=== PATIENT | female | born 1960 | race Caucasian/White ===

== ENCOUNTER 2020-05-31 08:28 | Emergency (ER) | payer MEDICAID ==
[~2020-05-31] VITALS: Ht 160 cm; Wt 120.0 kg
[2020-05-31 09:49] LABS: BASOPHILS % (AUTO) 0.5 % (0-1); EOSINOPHILS # (AUTO) 0.1 X10'3 (0-0.9); EOSINOPHILS % (AUTO) 1.2 % (0-6); HEMATOCRIT 42.4 % (35.0-45.0); HEMOGLOBIN 14.1 g/dl (12.0-16.0); LYMPHOCYTES # (AUTO) 1.2 X10'3 (1.1-4.8); LYMPHOCYTES % (AUTO) 23.8 % (21-51); MEAN CORPUSCULAR HEMOGLOBIN 29.8 PG (27.0-31.0); MEAN CORPUSCULAR HGB CONC 33.3 g/dL (33.0-36.5); MEAN CORPUSCULAR VOLUME 89.6 FL (78-98); MEAN PLATELET VOLUME 8.2 FL (7.4-10.4); MONOCYTES # (AUTO) 0.5 X10'3 (0-0.9); MONOCYTES % (AUTO) 8.9 % (2-12); NEUTROPHILS # (AUTO) 3.4 X10'3 (1.8-7.7); NEUTROPHILS % (AUTO) 65.6 % (42-75); PLATELET COUNT 232 X10'3 (140-440); RED BLOOD COUNT 4.73 X10'6 (4.20-5.60); RED CELL DISTRIBUTION WIDTH 14.8 % (11.5-14.5); WHITE BLOOD COUNT 5.2 X10'3 (4.5-11.0)
[2020-05-31 09:52] LABS: ALANINE AMINOTRANSFERASE 34 U/L (12-78); ALBUMIN 3.5 G/DL (3.4-5.0); ALBUMIN/GLOBULIN RATIO 0.9 (1.1-1.5); ALKALINE PHOSPHATASE 87 IU/L (46-116); ANION GAP 8 (8-16); ASPARTATE AMINO TRANSFERASE 26 U/L (10-37); BILIRUBIN,TOTAL 0.5 MG/DL (0.1-1.0); BLOOD UREA NITROGEN 17 MG/DL (7-18); BUN/CREATININE RATIO 18.3 (6.6-38.0); CALCIUM 8.9 MG/DL (8.5-10.1); CHLORIDE 102 MMOL/L (99-107); CREATININE 0.93 MG/DL (0.40-0.90); GLUCOSE 106 MG/DL (70-104); SODIUM 137 MMOL/L (135-145); TOTAL CARBON DIOXIDE 26.7 MMOL/L (24-32); TOTAL PROTEIN 7.3 G/DL (6.4-8.2); eGFR 62 ML/MIN
[2020-05-31 10:11] LABS: MAGNESIUM 2.2 MG/DL (1.5-2.4)
[2020-05-31 11:04] VITALS: BP 153/72
== END 2020-05-31 11:07 | disposition home or self-care (01) ==
LOC: ER 08:29
DX: R07.89 Other chest pain (principal); R42 Dizziness and giddiness; R53.83 Other fatigue; R03.0 Elevated blood-pressure reading, without diagnosis of hypertension; E03.9 Hypothyroidism, unspecified
CPT/HCPCS: 36415; 71045; 80053; 83735; 83880; 84484; 85025; 85379; 93005; 99285

== ENCOUNTER 2020-09-12 12:08 | Emergency (ER) | payer MEDICAID ==
--- NOTE | 2020-09-12 13:09 | NUR ---
Patient not in lobby for the third time, Attempt to contact patient by phone with no voicemail or answer. Dr. Jennings notified.
== END 2020-09-12 13:10 | disposition left against medical advice (07) ==
LOC: ER 12:08
DX: I10 Essential (primary) hypertension (principal); Z53.21 Procedure and treatment not carried out due to patient leaving prior to being seen by health care provider

== ENCOUNTER 2020-12-07 12:06 | Inpatient (IN) | payer MEDICAID ==
[~2020-12-07] VITALS: Ht 160 cm; Wt 113.6 kg
--- NOTE | 2020-12-07 12:21 | NUR ---
PT FAMILY SAURABH CHING AND KONG MANUEL, PT GIVE PERMISSION TO TQALK WITH THEM ABOUT HER HEALTH.
[2020-12-07] MEDS ORDERED: DEXAMETHASONE 6 MG TABLET PO ONE (13:15)
[2020-12-07] MEDS ORDERED: dexamethasone 4mg tablet PO ONE (13:15)
[2020-12-07 14:30] LABS: BASOPHILS % (AUTO) 0.1 % (0-1); EOSINOPHILS % (AUTO) 0 % (0-6); HEMATOCRIT 40.9 % (35.0-45.0); HEMOGLOBIN 13.4 g/dl (12.0-16.0); LYMPHOCYTES # (AUTO) 0.5 X10'3 (1.1-4.8); LYMPHOCYTES % (AUTO) 7.9 % (21-51); MEAN CORPUSCULAR HEMOGLOBIN 29.1 PG (27.0-31.0); MEAN CORPUSCULAR HGB CONC 32.7 g/dL (33.0-36.5); MEAN PLATELET VOLUME 8.6 FL (7.4-10.4); MONOCYTES # (AUTO) 0.3 X10'3 (0-0.9); MONOCYTES % (AUTO) 5.8 % (2-12); NEUTROPHILS # (AUTO) 5.1 X10'3 (1.8-7.7); NEUTROPHILS % (AUTO) 86.2 % (42-75); PLATELET COUNT 152 X10'3 (140-440); RED BLOOD COUNT 4.59 X10'6 (4.20-5.60); RED CELL DISTRIBUTION WIDTH 15.1 % (11.5-14.5); WHITE BLOOD COUNT 5.9 X10'3 (4.5-11.0)
[2020-12-07 14:49] LABS: ALANINE AMINOTRANSFERASE 32 U/L (12-78); ALBUMIN 2.7 G/DL (3.4-5.0); ALBUMIN/GLOBULIN RATIO 0.6 (1.1-1.5); ALKALINE PHOSPHATASE 62 IU/L (46-116); ANION GAP 9 (8-16); ASPARTATE AMINO TRANSFERASE 33 U/L (10-37); BILIRUBIN,TOTAL 0.4 MG/DL (0.1-1.0); BLOOD UREA NITROGEN 11 MG/DL (7-18); BUN/CREATININE RATIO 12.6 (6.6-38.0); CALCIUM 8.6 MG/DL (8.5-10.1); CHLORIDE 101 MMOL/L (99-107); CREATININE 0.87 MG/DL (0.40-0.90); GLUCOSE 139 MG/DL (70-104); POTASSIUM 3.4 MMOL/L (3.5-5.1); SODIUM 140 MMOL/L (135-145); TOTAL CARBON DIOXIDE 29.8 MMOL/L (24-32); TOTAL PROTEIN 6.9 G/DL (6.4-8.2); eGFR 67 ML/MIN
[2020-12-07 14:53] LABS: C-REACTIVE PROTEIN 23.01 MG/DL (0.0-0.5); LACTATE DEHYDROGENASE 265 U/L (81-234)
--- NOTE | 2020-12-07 15:00 | NUR ---
ROOM AIR SPO2 89-90 %, PA NOTIFIED, PT PLACED ON 2L/NC
[2020-12-07] MEDS ORDERED: LEVO25TA2 PO (17:01)
[2020-12-07] MEDS ORDERED: acetaminophen 650mg rectal suppository RC PRN (17:25)
[2020-12-07] MEDS ORDERED: bisacodyl 10mg suppository rectal RC PRN (17:25)
[2020-12-07] MEDS ORDERED: magnesium 4gm in 100ml NS 100 ML IV PRN (17:25)
[2020-12-07] MEDS ORDERED: magnesium hydroxide 30ml (MOM) UD suspension PO PRN (17:25)
[2020-12-07] MEDS ORDERED: magnesium Cl slow-release 64mg tablet PO PRN (17:25)
[2020-12-07] MEDS ORDERED: morphine 2 MG/ML inj. syringe IV PRN ×2 (17:25)
[2020-12-07] MEDS ORDERED: acetaminophen 325mg tablet PO PRN (17:25)
[2020-12-07] MEDS ORDERED: magnesium 2GM in 50ml NS 50 ML IV PRN (17:25)
[2020-12-07] MEDS ORDERED: HYDROcodone/acetaminophen 5mg/325mg tablet PO PRN (17:25)
[2020-12-07] MEDS ORDERED: ondansetron/PF 4mg/2ml inj IV PRN (17:25)
[2020-12-07] MEDS ORDERED: mag hydrox/Alum hydrox/simeth 30ml oral suspension PO PRN (17:25)
[2020-12-07] MEDS ORDERED: HYDROcodone/acetaminophen 10/325mg tab PO PRN (17:25)
[2020-12-07] MEDS ORDERED: diphenhydrAMINE 25mg capsule PO PRN (17:25)
[2020-12-07] MEDS ORDERED: potassium Cl 20 mEq SR tablet PO PRN (17:25)
[2020-12-07] MEDS ORDERED: potassium Cl 40MEQ/1/2NS 520ml 520 ML IV PRN ×2 (17:25)
[2020-12-07 18:01] LABS: HEMOGLOBIN A1C 6.5 % (4.5-6.2)
[2020-12-07] MEDS: normal saline 1000ml 1,000 ML IV SCH (19:13)
[2020-12-07 19:40] LABS: CLARITY,URINE CLEAR (Clear); COLOR,URINE YELLOW (Yellow); GLUCOSE, URINE NEGATIVE (Neg); KETONES,URINE NEGATIVE (Neg); LEUKOCYTE ESTERASE ,URINE NEGATIVE (Neg); NITRITES, URINE NEGATIVE (Neg); OCCULT BLOOD,URINE TRACE-INTACT (Neg); PROTEIN,URINE TRACE mg/dl (Neg); UA COLLECTION TYPE CLN CATCH MIDSTREAM
[2020-12-07 19:47] LABS: BACTERIA,URINE FEW /HPF (Neg); RBC,URINE 0-2 /HPF (0-2); SQUAMOUS EPITHELIAL CELL,UR FEW /LPF (FEW); WBC,URINE NONE SEEN /HPF (0-4)
[2020-12-07] MEDS: K and/or MAG REPLACEMENT MC SCH (20:00)
[2020-12-07] MEDS: potassium Cl 20 mEq SR tablet PO PRN (20:31)
[2020-12-07] MEDS: benzonatate 100mg capsule PO SCH (20:32)
[2020-12-07] MEDS: DEXAMETHASONE 6 MG TABLET PO SCH (20:32)
[2020-12-07] MEDS: acetaminophen 325mg tablet PO PRN (20:33)
[2020-12-07] MEDS: ALBUTEROL INHALER 1 PUFF/90 MCG INHALER IH PRN (20:46)
--- NOTE | 2020-12-07 21:15 | NUR ---
PT ARRIVED FROM ER. AMBULATED TO BATHROOM AND BECAME SOB. VSS. PT HAS BEEN ORIENTED TO THE ROOM. RECEIVED REPORT FROM KAY VAZQUEZ PRIOR TO PT'S ARRIVAL.
[2020-12-07 22:00] VITALS: BP 167/92
[2020-12-08] MEDS: potassium Cl 20 mEq SR tablet PO PRN (00:26)
[2020-12-08 02:00] VITALS: BP 140/80
[2020-12-08] MEDS: ALBUTEROL INHALER 1 PUFF/90 MCG INHALER IH PRN ×2 (03:08→09:12)
[2020-12-08 06:00] VITALS: BP 161/73
--- NOTE | 2020-12-08 06:09 | NUR ---
Problems reprioritized. Patient report given, questions answered & plan of care reviewed with KAY SUTTON.
[2020-12-08] MEDS: benzonatate 100mg capsule PO SCH ×3 (07:06→20:21)
[2020-12-08] MEDS: levoTHYROXINE 25mcg tablet PO SCH ×2 (07:06→07:15)
[2020-12-08] MEDS: DEXAMETHASONE 6 MG TABLET PO SCH ×2 (07:06→20:21)
[2020-12-08] MEDS: enoxaparin 40mg/0.4ml syringe SUBCUT SCH (07:07)
[2020-12-08 07:15] LABS: BASOPHILS % (AUTO) 0.1 % (0-1); EOSINOPHILS % (AUTO) 0 % (0-6); MONOCYTES # (AUTO) 0.2 X10'3 (0-0.9); NEUTROPHILS # (AUTO) 4.2 X10'3 (1.8-7.7)
[2020-12-08 07:17] LABS: HEMOGLOBIN 13.5 g/dl (12.0-16.0); LYMPHOCYTES # (AUTO) 0.5 X10'3 (1.1-4.8); LYMPHOCYTES % (AUTO) 9.4 % (21-51); MEAN CORPUSCULAR HEMOGLOBIN 29.3 PG (27.0-31.0); MEAN CORPUSCULAR HGB CONC 32.9 g/dL (33.0-36.5); MEAN CORPUSCULAR VOLUME 89.1 FL (78-98); MEAN PLATELET VOLUME 8.7 FL (7.4-10.4); MONOCYTES % (AUTO) 4.6 % (2-12); NEUTROPHILS % (AUTO) 85.9 % (42-75); PLATELET COUNT 167 X10'3 (140-440); RED CELL DISTRIBUTION WIDTH 15.3 % (11.5-14.5); WHITE BLOOD COUNT 4.9 X10'3 (4.5-11.0)
[2020-12-08 07:24] LABS: D-DIMER 0.64 MG/L FEU (0-0.50)
[2020-12-08] MEDS: LEVOTHYROXINE 25 MG PO SCH (07:30)
[2020-12-08 07:42] LABS: ALANINE AMINOTRANSFERASE 33 U/L (12-78); ALBUMIN 2.6 G/DL (3.4-5.0); ALBUMIN/GLOBULIN RATIO 0.6 (1.1-1.5); ALKALINE PHOSPHATASE 62 IU/L (46-116); ANION GAP 8 (8-16); ASPARTATE AMINO TRANSFERASE 30 U/L (10-37); BILIRUBIN,TOTAL 0.2 MG/DL (0.1-1.0); BLOOD UREA NITROGEN 12 MG/DL (7-18); BUN/CREATININE RATIO 13.6 (6.6-38.0); C-REACTIVE PROTEIN 21.75 MG/DL (0.0-0.5); CALCIUM 8.8 MG/DL (8.5-10.1); CHLORIDE 102 MMOL/L (99-107); CHOL/HDL RATIO 3.1 (0.00-4.99); CHOLESTEROL 132 MG/DL (0-200); CREATININE 0.88 MG/DL (0.40-0.90); GLUCOSE 269 MG/DL (70-104); HDL CHOLESTEROL 43 MG/DL (35-60); LACTATE DEHYDROGENASE 318 U/L (81-234); LDL CHOLESTEROL 78 MG/DL (50-100); MAGNESIUM 2.4 MG/DL (1.5-2.4); PHOSPHORUS 1.6 MG/DL (2.3-4.5); SODIUM 139 MMOL/L (135-145); TOTAL CARBON DIOXIDE 29.1 MMOL/L (24-32); TOTAL PROTEIN 7.2 G/DL (6.4-8.2); TRIGLYCERIDES 72 MG/DL (20-135); eGFR 66 ML/MIN
[2020-12-08] MEDS: K and/or MAG REPLACEMENT MC SCH ×2 (08:00→20:00)
[2020-12-08] MEDS ORDERED: LEVOTHYROXINE 25 MG PO SCH (08:00)
[2020-12-08 10:00] VITALS: BP 167/69
[2020-12-08] MEDS ORDERED: REMDESIVIR 100MG inj. 200 MG in normal saline 100ml IV soln 100 ML IV ONE (11:30)
[2020-12-08 14:00] VITALS: BP 172/94
[2020-12-08 18:00] VITALS: BP 163/102
--- NOTE | 2020-12-08 18:19 | NUR ---
Patient in room [facility]TH[facility] 4016. I have received report from Maddison VILLANUEVA and had the opportunity to ask questions and assume patient care.
[2020-12-08] MEDS ORDERED: MESSAGE TO PHARMACY PO ONE (19:55)
[2020-12-08] MEDS ORDERED: glucagon, human recombinant 1mg kit SUBCUT PRN (19:55)
[2020-12-08] MEDS ORDERED: dextrose ORAL solution 15 GM/59 ML bottle PO PRN ×2 (19:55)
[2020-12-08] MEDS ORDERED: dextrose 50%-water 50ml dispensing syringe IV PRN ×2 (19:55)
[2020-12-08 22:00] VITALS: BP 157/93
[2020-12-08] MEDS: Melatonin 3mg tablet PO SCH (22:20)
[2020-12-08] MEDS: insulin glargine (Lantus) pen - multi-dose SQ SCH (22:20)
[2020-12-09 02:00] VITALS: BP 137/86
[2020-12-09 06:00] VITALS: BP 143/89
--- NOTE | 2020-12-09 06:07 | NUR ---
Problems reprioritized. Patient report given, questions answered & plan of care reviewed with Amanda VILLANUEVA.
[2020-12-09] MEDS: enoxaparin 40mg/0.4ml syringe SUBCUT SCH (07:16)
[2020-12-09] MEDS: benzonatate 100mg capsule PO SCH ×3 (07:16→20:09)
[2020-12-09] MEDS: REMDESIVIR 100MG inj. 100 MG in normal saline 100ml IV soln 100 ML IV SCH (07:16)
[2020-12-09] MEDS: DEXAMETHASONE 6 MG TABLET PO SCH ×2 (07:16→20:09)
[2020-12-09] MEDS: LEVOTHYROXINE 25 MG PO SCH (07:30)
[2020-12-09] MEDS: K and/or MAG REPLACEMENT MC SCH ×2 (07:34→20:00)
[2020-12-09 08:52] LABS: BASOPHILS % (AUTO) 0.2 % (0-1); EOSINOPHILS % (AUTO) 0 % (0-6); HEMATOCRIT 41.8 % (35.0-45.0); HEMOGLOBIN 13.6 g/dl (12.0-16.0); LYMPHOCYTES # (AUTO) 0.7 X10'3 (1.1-4.8); LYMPHOCYTES % (AUTO) 5.5 % (21-51); MEAN CORPUSCULAR HEMOGLOBIN 28.8 PG (27.0-31.0); MEAN CORPUSCULAR HGB CONC 32.5 g/dL (33.0-36.5); MEAN CORPUSCULAR VOLUME 88.7 FL (78-98); MEAN PLATELET VOLUME 8.4 FL (7.4-10.4); MONOCYTES # (AUTO) 0.5 X10'3 (0-0.9); MONOCYTES % (AUTO) 4.4 % (2-12); NEUTROPHILS # (AUTO) 11.1 X10'3 (1.8-7.7); NEUTROPHILS % (AUTO) 89.9 % (42-75); PLATELET COUNT 223 X10'3 (140-440); RED BLOOD COUNT 4.72 X10'6 (4.20-5.60); RED CELL DISTRIBUTION WIDTH 15.4 % (11.5-14.5); WHITE BLOOD COUNT 12.3 X10'3 (4.5-11.0)
[2020-12-09] MEDS: insulin Lispro (HumaLOG) vial - multi-dose SQ SCH ×3 (09:00→18:50)
[2020-12-09 09:16] LABS: ALANINE AMINOTRANSFERASE 37 U/L (12-78); ALBUMIN 2.5 G/DL (3.4-5.0); ALBUMIN/GLOBULIN RATIO 0.6 (1.1-1.5); ALKALINE PHOSPHATASE 62 IU/L (46-116); ANION GAP 8 (8-16); ASPARTATE AMINO TRANSFERASE 28 U/L (10-37); BILIRUBIN,TOTAL 0.2 MG/DL (0.1-1.0); BLOOD UREA NITROGEN 19 MG/DL (7-18); C-REACTIVE PROTEIN 9.23 MG/DL (0.0-0.5); CALCIUM 8.7 MG/DL (8.5-10.1); CHLORIDE 104 MMOL/L (99-107); CREATININE 0.76 MG/DL (0.40-0.90); GLUCOSE 214 MG/DL (70-104); LACTATE DEHYDROGENASE 254 U/L (81-234); MAGNESIUM 2.3 MG/DL (1.5-2.4); PHOSPHORUS 3.1 MG/DL (2.3-4.5); SODIUM 140 MMOL/L (135-145); TOTAL PROTEIN 6.8 G/DL (6.4-8.2); eGFR 78 ML/MIN
[2020-12-09 09:28] LABS: D-DIMER 0.44 MG/L FEU (0-0.50)
[2020-12-09 10:00] VITALS: BP 155/81
[2020-12-09] MEDS: acetaminophen 325mg tablet PO PRN (13:59)
[2020-12-09 14:21] VITALS: BP 165/94
[2020-12-09 18:00] VITALS: BP 157/90
--- NOTE | 2020-12-09 18:20 | NUR ---
Problems reprioritized. Patient report given, questions answered & plan of care reviewed with Zohreh VILLANUEVA.
--- NOTE | 2020-12-09 18:20 | NUR ---
PAGER ID: [phone] MESSAGE: [id number]- Headache is gone now that nitro patch is off. No chest pain with ambulation or at rest. Does not feel comfortable going home tonight. Amanda [id number] Addendum: 12/09/20 at 1820 by Amanda Daniel RN Wrong patient
--- NOTE | 2020-12-09 18:22 | NUR ---
Patient in room [facility]TH[facility] 4016. I have received report from KAY Patel and had the opportunity to ask questions and assume patient care.
[2020-12-09] MEDS: normal saline 1000ml 1,000 ML IV SCH (18:32)
[2020-12-09] MEDS: Melatonin 3mg tablet PO SCH (20:55)
[2020-12-09] MEDS: insulin glargine (Lantus) pen - multi-dose SQ SCH (20:57)
[2020-12-09] MEDS: amLODIPine 5mg tablet PO SCH (20:59)
[2020-12-09 22:00] VITALS: BP 159/87
[2020-12-10 02:00] VITALS: BP 147/73
[2020-12-10 06:00] VITALS: BP 144/82
--- NOTE | 2020-12-10 06:40 | NUR ---
Problems reprioritized. Patient report given, questions answered & plan of care reviewed with KAY Patel.
[2020-12-10 07:26] LABS: BASOPHILS % (AUTO) 0.1 % (0-1); EOSINOPHILS % (AUTO) 0 % (0-6); HEMATOCRIT 42.1 % (35.0-45.0); HEMOGLOBIN 13.8 g/dl (12.0-16.0); LYMPHOCYTES # (AUTO) 0.8 X10'3 (1.1-4.8); LYMPHOCYTES % (AUTO) 8.3 % (21-51); MEAN CORPUSCULAR HGB CONC 32.7 g/dL (33.0-36.5); MEAN CORPUSCULAR VOLUME 88.5 FL (78-98); MONOCYTES # (AUTO) 0.8 X10'3 (0-0.9); MONOCYTES % (AUTO) 8.4 % (2-12); NEUTROPHILS # (AUTO) 7.6 X10'3 (1.8-7.7); NEUTROPHILS % (AUTO) 83.2 % (42-75); PLATELET COUNT 263 X10'3 (140-440); RED BLOOD COUNT 4.76 X10'6 (4.20-5.60); RED CELL DISTRIBUTION WIDTH 15.2 % (11.5-14.5); WHITE BLOOD COUNT 9.2 X10'3 (4.5-11.0)
[2020-12-10] MEDS: benzonatate 100mg capsule PO SCH ×3 (07:27→21:08)
[2020-12-10] MEDS: enoxaparin 40mg/0.4ml syringe SUBCUT SCH (07:27)
[2020-12-10] MEDS: amLODIPine 5mg tablet PO SCH (07:28)
[2020-12-10] MEDS: REMDESIVIR 100MG inj. 100 MG in normal saline 100ml IV soln 100 ML IV SCH (07:28)
[2020-12-10] MEDS: DEXAMETHASONE 6 MG TABLET PO SCH (07:28)
[2020-12-10 07:35] LABS: D-DIMER 0.35 MG/L FEU (0-0.50)
[2020-12-10 07:51] LABS: ALANINE AMINOTRANSFERASE 39 U/L (12-78); ALBUMIN 2.5 G/DL (3.4-5.0); ALBUMIN/GLOBULIN RATIO 0.6 (1.1-1.5); ALKALINE PHOSPHATASE 58 IU/L (46-116); ANION GAP 10 (8-16); ASPARTATE AMINO TRANSFERASE 23 U/L (10-37); BILIRUBIN,TOTAL 0.2 MG/DL (0.1-1.0); BLOOD UREA NITROGEN 25 MG/DL (7-18); BUN/CREATININE RATIO 32.9 (6.6-38.0); C-REACTIVE PROTEIN 4.75 MG/DL (0.0-0.5); CALCIUM 8.3 MG/DL (8.5-10.1); CHLORIDE 104 MMOL/L (99-107); CREATININE 0.76 MG/DL (0.40-0.90); GLUCOSE 201 MG/DL (70-104); LACTATE DEHYDROGENASE 251 U/L (81-234); MAGNESIUM 2.5 MG/DL (1.5-2.4); PHOSPHORUS 3.4 MG/DL (2.3-4.5); POTASSIUM 4.3 MMOL/L (3.5-5.1); SODIUM 140 MMOL/L (135-145); TOTAL CARBON DIOXIDE 26.5 MMOL/L (24-32); TOTAL PROTEIN 6.7 G/DL (6.4-8.2); eGFR 78 ML/MIN
[2020-12-10] MEDS: K and/or MAG REPLACEMENT MC SCH ×2 (08:00→19:19)
[2020-12-10] MEDS: insulin Lispro (HumaLOG) vial - multi-dose SQ SCH ×3 (09:43→18:56)
[2020-12-10] MEDS: LEVOTHYROXINE 25 MG PO SCH (09:50)
[2020-12-10 14:00] VITALS: BP 133/88
--- NOTE | 2020-12-10 14:02 | NUR ---
DM consult for newly diagnosed DM, A1c 6.5%; faxed written DM education handout to unit to be given to patient to review education via telephone. Called patient at 14:00 on 12/10, did not answer. [facility] contact information provided to patient. Addendum: 12/10/20 at [address] Amended: Links added.
[2020-12-10 18:00] VITALS: BP_SYST 121; BP_SYST 142; BP_DIAS 86; BP_DIAS 88
--- NOTE | 2020-12-10 18:25 | NUR ---
Problems reprioritized. Patient report given, questions answered & plan of care reviewed with Chelsey VILLANUEVA.
[2020-12-10] MEDS: Melatonin 3mg tablet PO SCH (21:08)
[2020-12-10] MEDS: dexamethasone 4mg tablet PO SCH (21:08)
[2020-12-10] MEDS: insulin glargine (Lantus) pen - multi-dose SQ SCH (21:15)
[2020-12-10 22:00] VITALS: BP 155/86
[2020-12-11 02:00] VITALS: BP 134/75
--- NOTE | 2020-12-11 06:15 | NUR ---
Problems reprioritized. Patient report given, questions answered & plan of care reviewed with KAY Patel.
[2020-12-11 06:21] VITALS: BP 136/72
[2020-12-11 07:01] LABS: BASOPHILS % (AUTO) 0.1 % (0-1); EOSINOPHILS % (AUTO) 0 % (0-6); HEMATOCRIT 40.6 % (35.0-45.0); HEMOGLOBIN 13.7 g/dl (12.0-16.0); LYMPHOCYTES # (AUTO) 0.9 X10'3 (1.1-4.8); LYMPHOCYTES % (AUTO) 10.3 % (21-51); MEAN CORPUSCULAR HEMOGLOBIN 29.5 PG (27.0-31.0); MEAN CORPUSCULAR HGB CONC 33.8 g/dL (33.0-36.5); MEAN CORPUSCULAR VOLUME 87.5 FL (78-98); MEAN PLATELET VOLUME 8.1 FL (7.4-10.4); MONOCYTES # (AUTO) 0.7 X10'3 (0-0.9); MONOCYTES % (AUTO) 8.5 % (2-12); NEUTROPHILS # (AUTO) 6.8 X10'3 (1.8-7.7); NEUTROPHILS % (AUTO) 81.1 % (42-75); PLATELET COUNT 306 X10'3 (140-440); RED BLOOD COUNT 4.64 X10'6 (4.20-5.60); RED CELL DISTRIBUTION WIDTH 15.2 % (11.5-14.5); WHITE BLOOD COUNT 8.3 X10'3 (4.5-11.0)
[2020-12-11] MEDS: dexamethasone 4mg tablet PO SCH ×2 (07:08→21:00)
[2020-12-11] MEDS: benzonatate 100mg capsule PO SCH ×3 (07:08→21:00)
[2020-12-11] MEDS: REMDESIVIR 100MG inj. 100 MG in normal saline 100ml IV soln 100 ML IV SCH (07:08)
[2020-12-11] MEDS: LEVOTHYROXINE 25 MG PO SCH (07:09)
[2020-12-11] MEDS: enoxaparin 40mg/0.4ml syringe SUBCUT SCH (07:09)
[2020-12-11 07:11] LABS: D-DIMER 0.42 MG/L FEU (0-0.50)
[2020-12-11] MEDS: amLODIPine 5mg tablet PO SCH (07:14)
[2020-12-11 07:21] LABS: ALANINE AMINOTRANSFERASE 72 U/L (12-78); ALBUMIN 2.4 G/DL (3.4-5.0); ALBUMIN/GLOBULIN RATIO 0.6 (1.1-1.5); ALKALINE PHOSPHATASE 55 IU/L (46-116); ANION GAP 9 (8-16); ASPARTATE AMINO TRANSFERASE 40 U/L (10-37); BILIRUBIN,TOTAL 0.3 MG/DL (0.1-1.0); BLOOD UREA NITROGEN 30 MG/DL (7-18); C-REACTIVE PROTEIN 2.56 MG/DL (0.0-0.5); CALCIUM 8.4 MG/DL (8.5-10.1); CHLORIDE 103 MMOL/L (99-107); CREATININE 0.75 MG/DL (0.40-0.90); GLUCOSE 171 MG/DL (70-104); LACTATE DEHYDROGENASE 239 U/L (81-234); MAGNESIUM 2.5 MG/DL (1.5-2.4); PHOSPHORUS 4.2 MG/DL (2.3-4.5); POTASSIUM 4.2 MMOL/L (3.5-5.1); SODIUM 138 MMOL/L (135-145); TOTAL CARBON DIOXIDE 25.8 MMOL/L (24-32); TOTAL PROTEIN 6.4 G/DL (6.4-8.2); eGFR 79 ML/MIN
[2020-12-11] MEDS: K and/or MAG REPLACEMENT MC SCH ×2 (07:22→18:51)
[2020-12-11] MEDS: insulin Lispro (HumaLOG) vial - multi-dose SQ SCH ×3 (08:17→18:35)
[2020-12-11 09:16] VITALS: BP 141/88
[2020-12-11 13:54] VITALS: BP 129/82
[2020-12-11 18:00] VITALS: BP 158/97
--- NOTE | 2020-12-11 18:19 | NUR ---
Problems reprioritized. Patient report given, questions answered & plan of care reviewed with Chelsey VILLANUEVA.
[2020-12-11] MEDS: Melatonin 3mg tablet PO SCH (21:00)
[2020-12-11] MEDS: insulin glargine (Lantus) pen - multi-dose SQ SCH (21:06)
[2020-12-11 22:00] VITALS: BP 143/84
[2020-12-12 06:00] VITALS: BP 138/78
--- NOTE | 2020-12-12 06:09 | NUR ---
Problems reprioritized. Patient report given, questions answered & plan of care reviewed with KAY Martin.
[2020-12-12 07:18] LABS: BASOPHILS % (AUTO) 0.5 % (0-1); EOSINOPHILS % (AUTO) 0 % (0-6); HEMATOCRIT 44.8 % (35.0-45.0); HEMOGLOBIN 14.8 g/dl (12.0-16.0); LYMPHOCYTES # (AUTO) 0.8 X10'3 (1.1-4.8); LYMPHOCYTES % (AUTO) 11.4 % (21-51); MEAN CORPUSCULAR HEMOGLOBIN 29.5 PG (27.0-31.0); MEAN CORPUSCULAR HGB CONC 33.1 g/dL (33.0-36.5); MEAN CORPUSCULAR VOLUME 88.9 FL (78-98); MEAN PLATELET VOLUME 8.1 FL (7.4-10.4); MONOCYTES # (AUTO) 0.5 X10'3 (0-0.9); NEUTROPHILS # (AUTO) 6.1 X10'3 (1.8-7.7); NEUTROPHILS % (AUTO) 81.1 % (42-75); PLATELET COUNT 343 X10'3 (140-440); RED BLOOD COUNT 5.03 X10'6 (4.20-5.60); RED CELL DISTRIBUTION WIDTH 15.3 % (11.5-14.5); WHITE BLOOD COUNT 7.5 X10'3 (4.5-11.0)
[2020-12-12 07:22] LABS: D-DIMER 0.61 MG/L FEU (0-0.50)
[2020-12-12 07:25] LABS: ALANINE AMINOTRANSFERASE 91 U/L (12-78); ALBUMIN 2.5 G/DL (3.4-5.0); ALBUMIN/GLOBULIN RATIO 0.6 (1.1-1.5); ALKALINE PHOSPHATASE 57 IU/L (46-116); ANION GAP 6 (8-16); ASPARTATE AMINO TRANSFERASE 31 U/L (10-37); BILIRUBIN,TOTAL 0.4 MG/DL (0.1-1.0); BLOOD UREA NITROGEN 26 MG/DL (7-18); BUN/CREATININE RATIO 35.6 (6.6-38.0); C-REACTIVE PROTEIN 1.67 MG/DL (0.0-0.5); CALCIUM 8.1 MG/DL (8.5-10.1); CHLORIDE 104 MMOL/L (99-107); CREATININE 0.73 MG/DL (0.40-0.90); GLUCOSE 131 MG/DL (70-104); LACTATE DEHYDROGENASE 242 U/L (81-234); MAGNESIUM 2.5 MG/DL (1.5-2.4); PHOSPHORUS 4.3 MG/DL (2.3-4.5); POTASSIUM 4.4 MMOL/L (3.5-5.1); SODIUM 139 MMOL/L (135-145); TOTAL CARBON DIOXIDE 28.9 MMOL/L (24-32); TOTAL PROTEIN 6.5 G/DL (6.4-8.2); eGFR 82 ML/MIN
[2020-12-12] MEDS: K and/or MAG REPLACEMENT MC SCH (08:00)
[2020-12-12] MEDS ORDERED: DEXAMETHASONE 6 MG TABLET PO SCH (08:10)
[2020-12-12 08:26] LABS: TOTAL CELLS COUNTED 100
[2020-12-12 08:27] LABS: PLATELET ESTIMATE NORMAL
[2020-12-12] MEDS: benzonatate 100mg capsule PO SCH (08:43)
[2020-12-12] MEDS: amLODIPine 5mg tablet PO SCH (08:44)
[2020-12-12] MEDS: LEVOTHYROXINE 25 MG PO SCH (08:44)
[2020-12-12] MEDS: enoxaparin 40mg/0.4ml syringe SUBCUT SCH (08:45)
[2020-12-12] MEDS: insulin Lispro (HumaLOG) vial - multi-dose SQ SCH (09:03)
[2020-12-12] MEDS: REMDESIVIR 100MG inj. 100 MG in normal saline 100ml IV soln 100 ML IV SCH (09:34)
--- NOTE | 2020-12-12 09:34 | NUR ---
O2 Sat at rest on room air:___% If below 89%: Recovery O2 Sat at rest on ___LPM:___%:___% via (mask/nasal cannula, etc..) No further documentation is necessary. If O2 Sat did not drop below 89% on room air,ambulate patient on room air. O2 Sat while ambulating on room air:__86_% Recovery O2 Sat while ambulating on _92__LPM:_2__% No further documentation is necessary. If patient does not drop below 89% while ambulating, he/she does not qualify for home O2.
--- NOTE | 2020-12-12 09:43 | NUR ---
O2 Sat at rest on room air:__86_% If below 89%: Recovery O2 Sat at rest on _2__LPM:__93_%:___% via nasal cannula __(mask/nasal cannula, etc..) No further documentation is necessary. If O2 Sat did not drop below 89% on room air,ambulate patient on room air. O2 Sat while ambulating on room air:___% Recovery O2 Sat while ambulating on ___LPM:___% No further documentation is necessary. If patient does not drop below 89% while ambulating, he/she does not qualify for home O2.
[2020-12-12 10:00] VITALS: BP 142/72
[2020-12-12] MEDS ORDERED: BENZ-16 PO (12:05)
[2020-12-12] MEDS ORDERED: ALBU8HFA PO (12:05)
[2020-12-12] MEDS ORDERED: NOR5T PO (12:05)
[2020-12-12] MEDS ORDERED: DEC4T PO (12:05)
[2020-12-13] MEDS ORDERED: METF500T PO (17:02)
== END 2020-12-12 14:10 | disposition home health service (06) | DRG 137 ==
LOC: ER 12:07 → ED HOLD 17:24 → ORTHO 4S 21:16
PROVIDERS: ADMIT Family Medicine; ATTEND Family Medicine
PROC: XW033E5 Introduction of Remdesivir Anti-infective into Peripheral Vein, Percutaneous Approach, New Technology Group 5 (ICD-10-PCS; principal; 2020-12-08)
DX: U07.1 COVID-19 (principal); J96.01 Acute respiratory failure with hypoxia; J12.82 Pneumonia due to coronavirus disease 2019; E03.9 Hypothyroidism, unspecified; E11.9 Type 2 diabetes mellitus without complications; E66.9 Obesity, unspecified; Z68.41 Body mass index [BMI] 40.0-44.9, adult; R79.82 Elevated C-reactive protein (CRP); Z79.890 Hormone replacement therapy
CPT/HCPCS: 36415; 71045; 76937; 80053; 80061; 81001; 82948; 83036; 83605; 83615; 83735; 83880; 84100; 84145; 84443; 84484; 85007; 85025; 85379; 86140; 87040; 87081; 87635; 93005; 94760; 97110; 97161; 97530; 99285; C9803; G0378; J1650; J1815; J7030; J8540